=== PATIENT | female | born 1960 | race Caucasian/White ===

== ENCOUNTER 2021-12-31 08:13 | Emergency (ER) | payer OTHER, SELFPAY ==
--- NOTE | ~2021-12-31 | XR_ITS ---
EXAMINATION: CT BRAIN AND CHEST X-RAY. CLINICAL INFORMATION: Change in mental status. Rule out stroke, bleed or mass effect. COMPARISON: None TECHNIQUE: 5 minutes thin axial and 2 mm reformatted coronal and sagittal images of brain were obtained. DLP 661. Chest one view. FINDINGS: BRAIN: There is moderate hypodensity in the left posterior parietal lobe and watershed area consistent with edema. Infarction is not excluded. However the hypodensity extends through the port posterior callus formation to the contralateral side suggestive of edema likely secondary to underlying mass. There is mild rffu-hc-zmmoy midline shift measuring 6 mm. There is moderate compression of the lateral ventricle. The right lateral ventricle and the right cerebral hemisphere is normal. There is loss of left cerebral cortical sulci secondary to edema. Bone windows reveal no calvarial abnormality. There is no scalp soft tissue abnormality. CHEST: The lungs are expanded and clear. The heart size and pulmonary vascularity is normal. No gross bony abnormality seen. XR/XR chest 1V IMPRESSION: Moderate hypodensity left posterior parietal lobe with effacement of left cerebellar cortical sulci mild [id number] midline shift. The hypodensity extends into the right corpus callosum via the left suggestive of vasogenic edema. This could be most likely secondary to underlying lesion such as glioma. Recommend correlation with MRI brain without contrast. Unremarkable chest exam. Results were discussed by phone with Dr. Jagdish Walton 9:50 AM
--- NOTE | ~2021-12-31 | CT_ITS ---
EXAMINATION: CT BRAIN AND CHEST X-RAY. CLINICAL INFORMATION: Change in mental status. Rule out stroke, bleed or mass effect. COMPARISON: None TECHNIQUE: 5 minutes thin axial and 2 mm reformatted coronal and sagittal images of brain were obtained. DLP 661. Chest one view. FINDINGS: BRAIN: There is moderate hypodensity in the left posterior parietal lobe and watershed area consistent with edema. Infarction is not excluded. However the hypodensity extends through the port posterior callus formation to the contralateral side suggestive of edema likely secondary to underlying mass. There is mild aoqq-qp-[id number] midline shift measuring 6 mm. There is moderate compression of the lateral ventricle. The right lateral ventricle and the right cerebral hemisphere is normal. There is loss of left cerebral cortical sulci secondary to edema. Bone windows reveal no calvarial abnormality. There is no scalp soft tissue abnormality. CHEST: The lungs are expanded and clear. The heart size and pulmonary vascularity is normal. No gross bony abnormality seen. CT/CT head/brain wo con IMPRESSION: Moderate hypodensity left posterior parietal lobe with effacement of left cerebellar cortical sulci mild zebn-[id number]-mzbld midline shift. The hypodensity extends into the right corpus callosum via the left suggestive of vasogenic edema. This could be most likely secondary to underlying lesion such as glioma. Recommend correlation with MRI brain without contrast. Unremarkable chest exam. Results were discussed by phone with Dr. Jagdish Walton 9:50 AM
[2021-12-31 08:20] VITALS: BP 137/89; BP 144/85; PULSE 112; PULSE 114; RESP 28; TEMP 38.6; O2SAT 94; O2SAT 95; BMI 30.7
--- NOTE | 2021-12-31 08:52 | ED_ITS ---
HPI - Altered Mental Status General Chief Complaint: Altered Mental Status Stated Complaint: STROKE ALERT,LKWT OVER 12 HOURS,R WEAKNESS Time Seen by Provider: 12/31/21 08:29 Source: EMS Mode of arrival: EMS Limitations: altered mental status History of Present Illness HPI narrative: 61-year-old female who was sent to the emergency department for altered mental status. The patient is oriented to person only and cannot answer questions appropriately. I attempted to contact the patient's home phone number to talk to her and the contact number for her some but was unable to reach any family members. The information comes from nursing note which was obtained from the paramedics. patient presents the ED with EMS for altered mental status. EMS states that her reports 1 week of progressive weakness and altered state. She does not contribute to the history of her symptoms. The ED nurse t old me that the reported that the patient started sulindac 1 week prior this is the only medication change. On presentation, the patient is oriented to person only, she does have make a verbal speech that was not comprehensible. she does follow some simple commands but not all. Initial vital signs revealed a blood pressure of 144/85, elevated pulse of 114, elevated respiratory rate of 28 and a temperature of a 101.4?. She meets SIRS criteria. 10 12: I did contact the patient's and got a more detailed history from him. He states the patient has been complaining of right arm pain since her 1st COVID 19 vaccination on 03/2021, she did receive a booster vaccination on 01/2021 ( Moderna). Over the past week the patient has been having difficulty with her memory and has been forgetting things. The 's had to tell her about multiple scheduled events that she keeps forgetting. Over the last week the patient has developed weakness of her right arm and has been dragging her right leg. The states that the patient has become foggy . This got progressively worse and today, she was confused, not answering questions and having difficulty walking therefore called an ambulance and had her brought to emergency department for evaluation. Related Data Home Medications Medication Instructions Recorded Confirmed duloxetine 60 mg capsule,delayed 1 cap PO BEDTIME 12/31/21 12/31/21 release esomeprazole magnesium 20 mg 20 mg PO DAILY 12/31/21 12/31/21 capsule,delayed release fenofibrate nanocrystallized 145 1 tab PO DAILY 12/31/21 12/31/21 mg tablet haloperidol 1 mg tablet 1 tab PO BID 12/31/21 12/31/21 lamotrigine 150 mg tablet 150 tab PO BEDTIME 12/31/21 12/31/21 lamotrigine 25 mg tablet 50 mg PO DAILY 12/31/21 12/31/21 lorazepam 0.5 mg tablet 1 tab PO BID PRN 12/31/21 12/31/21 mirtazapine 45 mg tablet 1 tab PO BEDTIME 12/31/21 12/31/21 rosuvastatin 10 mg tablet 1 tab PO BEDTIME 12/31/21 12/31/21 sulindac 200 mg tablet 1 tab PO BID 12/31/21 12/31/21 Allergies Allergy/AdvReac Type Severity Reaction Status Date / Time sumatriptan [From Allergy Severe TONGUE AND Unverified 08/17/20 17:20 [email or web address]] THROAT SWELLING Review of Systems Verdana 4l Review of Systems: Yes Unobtainable due to mental status Verdana 4d [facility] Past Medical History [facility] Narrative: Past medical history: is a poor informant regarding the patient's past medical history however based on her medications patient has diabetes, hyperlipidemia, GERD, depression and anxiety. She does take haloperidol but the does not know the reason for this medication Past surgical history: According to the , patient has had several knee surgeries. Social history: The patient does not smoke cigarettes. She does drink alcohol but has had no alcohol to drink and 1/2 weeks. she does not use drugs. Social History Social History Advance Directives: No Advance Directives Information Provided: Yes Physical Exam Verdana 4l Vital Signs: Verdana 4d Verdana 4d Vital Signs: Verdana 4d Verdana 4Bd Last Vital Signs Verdana 4d Architecture Professor New 4d Architecture Professor New 4d Temp 99.7 F 12/31/21 11:08 Architecture Professor New 4d Pulse 93 12/31/21 11:08 Architecture Professor New 4d Resp 12 12/31/21 11:08 BP 109/68 12/31/21 11:08 Pulse Ox 97 12/31/21 11:08 BMI result Body Mass Index 30.7 Const: Other: awake female, she is altered, she was able to state her 1st name but not her last, she is mumbling incomprehensible speech, she does follow some simple commands but not all commands. HENMT: Head: Yes normal to inspection, Yes normocephalic and Yes atraumatic Ears: external ears normal General nose exam: Normal external nose present Face and sinus: Yes normal facial exam Mouth: mucous membranes dry ( Very dry) Throat: Yes posterior oropharynx normal Eyes: General: appearance normal, both eyes and all related structures Neck: Neck: Yes normal visual inspection, Yes no lymphadenopathy, Yes trachea midline and Yes other ( the patient's neck does seem to be stiff to flexion but not lateral moveme) Chest: Chest palpation & inspection: normal inspection of the chest and normal palpation of entire chest wall Resp: Effort & Inspection: normal respiratory effort and able to speak in complete sentences Auscultation: clear to auscultation bilaterally Cardio: Rate: tachycardic Rhythm: regular rhythm Heart sounds: S1 normal heart sound present, S2 normal heart sound present and no murmurs GI: Inspection: Yes normal to inspection Palpation (GI): Soft to palpation, nontender and no guarding Auscultation: normal bowel sounds : General: Yes no CVA tenderness Back/Spine/Pelvis: Back: no CVA tenderness Skin: Other: no petechiae noted General skin exam: no rashes or lesions noted Neuro: Other: exam is limited by patient's altered mental status, she was able to close her eyes and open her mouth but not stick out her tongue on command, she does seem to be able to hold her arms up against gravity and move her legs, he may have some slight weakness of the right upper extremity compared to the left but this is difficult to ascertain since she cannot cooperate with the exam. Extrem: General: Yes normal to inspection Psych: Other: Altered mental status, mumbling non comprehensible verbal speech, oriented to name only, does follow some simple commands Course Course Course Narrative: 61-year-old female who presents emergency department for evaluation of altered mental status with reported progressive weakness and change in mental status over 1 week. Patient was oriented to name only, she is mumbling verbal non comprehensible speech, she does follow some simple commands. Patient may have some nuchal rigidity with no evidence of a rash. Patient's initial vital signs were concerning with a temperature of a 101.4?, respiratory rate 28 and pulse o 114. Differential includes but is not limited to toxic metabolic syndrome, meningitis, pneumonia, urinary tract infection, COVID-19 infection. she is not hypotensive her blood pressure is 144/85. I did order workup on this patient to include CBC, CMP, blood cultures x2, straight cath urine specimen, lactate, TSH, PT/ INR, PTT, alcohol, urine drug screen, chest x-ray x1 view and CT scan of the brain without contrast. Patient was ordered to get normal saline 30 cc/kilogram, ceftriaxone 2 g IV and vancomycin 1 g IV. If the patient has a normal CT scan with no evidence for cerebral edema, I will do a spinal tap. 1018 : The patient's CT scan of the brain :Moderate hypodensity left posterior parietal lobe with effacement ofleft cerebellar cortical sulci mild [id number]-[id number] midline shift. The hypodensity extends into the right corpus callosum via the left suggestive of vasogenic edema. This could be most likely secondary to underlying lesion such as glioma. Recommend correlation with MRI brain without contrast. given this finding, LP will not be done. the patient will be given dexamethasone 10 mg IV. She will still be treated with antibiotics. I did discuss this finding with the patient's and we will transfer the patient to a facility that has neurosurgical services. The patient's laboratory evaluation was unremarkable except for a slightly low potassium 3.2. The patient's lactate was normal. Coags were normal. Urinalysis was negative. COVID-19 was negative. ETOH was below detectable limits. 1025: I did discuss the patient's presentation with [facility] and they are unable to accept this patient secondary to critical overload. I will discuss the patient's presentation with [facility]. 1126: The patient was accepted as an ED to ED transfer to [facility], the excepting ED physician is Dr. Patrick. the patient will be transported by ALS ambulance. ? MDM - Altered Mental Status Lab Data Result diagrams: 12/31/21 08:58 12/31/21 08:58 Labs: Lab Results 12/31/21 12/31/21 12/31/21 Range/Units 08:57 08:58 08:58 WBC 8.2 (4.8-10.8) X10*3/uL RBC 4.43 (4.20-5.50) X10*6/uL Hgb 14.3 (12.0-16.0) g/dl Hct 42.4 (37.0-47.0) % MCV 95.7 (80.0-98.0) fL MCH 32.3 (27.0-33.0) pg MCHC 33.7 (31.0-35.0) g/dl RDW 11.5 (11.0-16.0) % Plt Count 241 (160-400) X10*3/uL MPV 10.0 (9.4-12.3) fL Immature Gran % (Auto) 0.4 (0.0-0.4) % Neut % (Auto) 78.2 H (45-73) % Lymph % (Auto) 12.0 L (20-40) % Lamb % (Auto) 8.6 (2-11) % Eos % (Auto) 0.6 (0-4) % Baso % (Auto) 0.2 (0-2) % Lymph # (Auto) 1.0 L (1.2-4.9) X10*3/uL Lamb # (Auto) 0.7 (0.1-1.2) X10*3/uL Eos # (Auto) 0.1 (0.0-0.4) X10*3/uL Baso # (Auto) 0.0 (0.0-0.2) X10*3/uL Abs Immat Gran (auto) 0.03 (0.00-0.03) X10*3/uL Absolute Neuts (auto) 6.4 (2.0-8.3) x10*3/uL Absolute Nucleated RBC 0.000 (0.0-0.012) X10*3/uL Nucleated RBC % (auto) 0.0 (0.0-0.2) /100WBC PT 12.9 (9.9-13.0) SEC INR 1.1 (0.9-1.1) APTT 29.2 (24.1-38.0) SEC Sodium (135-145) mmol/L Potassium (3.3-5.1) mmol/L Chloride (96-108) mmol/L Carbon Dioxide (22-29) mmol/L Anion Gap (12-20) BUN (9-16) mg/dL Creatinine (0.5-1.4) mg/dL Estim Creat Clear Calc Estimated GFR Random Glucose (60-115) mg/dL Lactic Acid (0.5-2.0) mmol/L Calcium (8.4-10.2) mg/dL Total Bilirubin (0.0-1.0) mg/dL AST (5-31) U/L ALT (0-31) U/L Alkaline Phosphatase (39-117) U/L Total Protein (6.5-8.0) g/dL Albumin (3.5-5.0) g/dL Lipase (8-78) U/L TSH (0.32-4.0) uIU/mL Urine Color Urine Appearance Urine pH (5.0-8.0) Ur Specific Ranger (1.005-1.025) Urine Protein (NEG-TRACE) MG/DL Urine Glucose (UA) (NEG) MG/DL Urine Ketones (NEG) MG/DL Urine Blood (NEG) Urine Nitrite (NEG) Ur Leukocyte Esterase (NEG) Urine RBC (0) /HPF Urine WBC (0-4) /HPF Ur Squamous Epith Cells /LPF Ur Renal Epithelial Cell /LPF Calcium Oxalate Crystal /LPF Urine Bacteria /LPF Hyaline Casts /LPF Ethyl Alcohol mg/dL COVID-19 (TONY) Negative (Negative) COVID-19 Clin Com See Note 12/31/21 12/31/21 12/31/21 Range/Units 08:58 08:58 08:58 WBC (4.8-10.8) X10*3/uL RBC (4.20-5.50) X10*6/uL Hgb (12.0-16.0) g/dl Hct (37.0-47.0) % MCV (80.0-98.0) fL MCH (27.0-33.0) pg MCHC (31.0-35.0) g/dl RDW (11.0-16.0) % Plt Count (160-400) X10*3/uL MPV (9.4-12.3) fL Immature Gran % (Auto) (0.0-0.4) % Neut % (Auto) (45-73) % Lymph % (Auto) (20-40) % Lamb % (Auto) (2-11) % Eos % (Auto) (0-4) % Baso % (Auto) (0-2) % Lymph # (Auto) (1.2-4.9) X10*3/uL Lamb # (Auto) (0.1-1.2) X10*3/uL Eos # (Auto) (0.0-0.4) X10*3/uL Baso # (Auto) (0.0-0.2) X10*3/uL Abs Immat Gran (auto) (0.00-0.03) X10*3/uL Absolute Neuts (auto) (2.0-8.3) x10*3/uL Absolute Nucleated RBC (0.0-0.012) X10*3/uL Nucleated RBC % (auto) (0.0-0.2) /100WBC PT (9.9-13.0) SEC INR (0.9-1.1) APTT (24.1-38.0) SEC Sodium 142 (135-145) mmol/L Potassium 3.2 L (3.3-5.1) mmol/L Chloride 104 (96-108) mmol/L Carbon Dioxide 26 (22-29) mmol/L Anion Gap 15 (12-20) BUN 15 (9-16) mg/dL Creatinine 0.88 (0.5-1.4) mg/dL Estim Creat Clear Calc 75.1 Estimated GFR > 60 Random Glucose 93 (60-115) mg/dL Lactic Acid 1.2 (0.5-2.0) mmol/L Calcium 9.3 (8.4-10.2) mg/dL Total Bilirubin 0.5 (0.0-1.0) mg/dL AST 61 H (5-31) U/L ALT 31 (0-31) U/L Alkaline Phosphatase 58 (39-117) U/L Total Protein 6.9 (6.5-8.0) g/dL Albumin 4.2 (3.5-5.0) g/dL Lipase 27 (8-78) U/L TSH 1.01 (0.32-4.0) uIU/mL Urine Color Urine Appearance Urine pH (5.0-8.0) Ur Specific Ranger (1.005-1.025) Urine Protein (NEG-TRACE) MG/DL Urine Glucose (UA) (NEG) MG/DL Urine Ketones (NEG) MG/DL Urine Blood (NEG) Urine Nitrite (NEG) Ur Leukocyte Esterase (NEG) Urine RBC (0) /HPF Urine WBC (0-4) /HPF Ur Squamous Epith Cells /LPF Ur Renal Epithelial Cell /LPF Calcium Oxalate Crystal /LPF Urine Bacteria /LPF Hyaline Casts /LPF Ethyl Alcohol < 10 mg/dL COVID-19 (TONY) (Negative) COVID-19 Clin Com 12/31/21 Range/Units 09:58 WBC (4.8-10.8) X10*3/uL RBC (4.20-5.50) X10*6/uL Hgb (12.0-16.0) g/dl Hct (37.0-47.0) % MCV (80.0-98.0) fL MCH (27.0-33.0) pg MCHC (31.0-35.0) g/dl RDW (11.0-16.0) % Plt Count (160-400) X10*3/uL MPV (9.4-12.3) fL Immature Gran % (Auto) (0.0-0.4) % Neut % (Auto) (45-73) % Lymph % (Auto) (20-40) % Lamb % (Auto) (2-11) % Eos % (Auto) (0-4) % Baso % (Auto) (0-2) % Lymph # (Auto) (1.2-4.9) X10*3/uL Lamb # (Auto) (0.1-1.2) X10*3/uL Eos # (Auto) (0.0-0.4) X10*3/uL Baso # (Auto) (0.0-0.2) X10*3/uL Abs Immat Gran (auto) (0.00-0.03) X10*3/uL Absolute Neuts (auto) (2.0-8.3) x10*3/uL Absolute Nucleated RBC (0.0-0.012) X10*3/uL Nucleated RBC % (auto) (0.0-0.2) /100WBC PT (9.9-13.0) SEC INR (0.9-1.1) APTT (24.1-38.0) SEC Sodium (135-145) mmol/L Potassium (3.3-5.1) mmol/L Chloride (96-108) mmol/L Carbon Dioxide (22-29) mmol/L Anion Gap (12-20) BUN (9-16) mg/dL Creatinine (0.5-1.4) mg/dL Estim Creat Clear Calc Estimated GFR Random Glucose (60-115) mg/dL Lactic Acid (0.5-2.0) mmol/L Calcium (8.4-10.2) mg/dL Total Bilirubin (0.0-1.0) mg/dL AST (5-31) U/L ALT (0-31) U/L Alkaline Phosphatase (39-117) U/L Total Protein (6.5-8.0) g/dL Albumin (3.5-5.0) g/dL Lipase (8-78) U/L TSH (0.32-4.0) uIU/mL Urine Color YELLOW Urine Appearance CLOUDY Urine pH 6.0 (5.0-8.0) Ur Specific Ranger >= 1.030 H (1.005-1.025) Urine Protein 2+ H (NEG-TRACE) MG/DL Urine Glucose (UA) NEG (NEG) MG/DL Urine Ketones 5 (NEG) MG/DL Urine Blood NEG (NEG) Urine Nitrite NEG (NEG) Ur Leukocyte Esterase NEG (NEG) Urine RBC 0 (0) /HPF Urine WBC 0 (0-4) /HPF Ur Squamous Epith Cells NONE /LPF Ur Renal Epithelial Cell 4+ /LPF Calcium Oxalate Crystal 3+ /LPF Urine Bacteria NONE /LPF Hyaline Casts 0-2 /LPF Ethyl Alcohol mg/dL COVID-19 (TONY) (Negative) COVID-19 Clin Com Critical Care Time Critical Care Time Critical Care Time: Yes Total Critical Care Time: 55 Attestation: Critical Care: The patient was critically ill with a high probability of imminent or life threatening deterioration. I spent greater than 30 minutes of discontinuous time evaluating the patient,delivering critical care at the bedside, discussing and evaluating pertinent data with consultants. Critical care time does not include time spent performing separately billable procedures or teaching. Total time spent performing critical care was 55 minutes. Discharge Plan Discharge Clinical Impression: Altered mental status, Cerebral edema, Fever Patient Disposition: Xfer Acute Care Hospital Transfer Details: ED to ED transfer to [facility] Prescriptions: No Action lamotrigine 150 mg tablet 150 tab PO BEDTIME 0RF haloperidol 1 mg tablet 1 tab PO BID 0RF lamotrigine 25 mg tablet 50 mg PO DAILY 0RF lorazepam 0.5 mg tablet 1 tab PO BID PRN (Reason: Anxiety) 0RF mirtazapine 45 mg tablet 1 tab PO BEDTIME 0RF sulindac 200 mg tablet 1 tab PO BID 0RF esomeprazole magnesium 20 mg Capsule,Delayed Release(Dr/Ec) 20 mg PO DAILY 0RF rosuvastatin 10 mg tablet 1 tab PO BEDTIME 0RF duloxetine 60 mg capsule,delayed release(DR/EC) 1 cap PO BEDTIME 0RF fenofibrate nanocrystallized 145 mg tablet 1 tab PO DAILY 0RF
[2021-12-31 09:09] LABS: MANUAL DIFF FLAG NO
[2021-12-31 09:11] LABS: Basophils Percent Auto 0.2 % (0-2); Eosinophils Absolute Auto 0.1 X10*3/uL (0.0-0.4); Eosinophils Percent Auto 0.6 % (0-4); Hematocrit 42.4 % (37.0-47.0); Hemoglobin 14.3 g/dl (12.0-16.0); Imm Gran Abs Auto 0.03 X10*3/uL (0.00-0.03); Imm Gran Pct Auto 0.4 % (0.0-0.4); Mean Corpuscular HGB Conc 33.7 g/dl (31.0-35.0); Mean Corpuscular Hemoglobin 32.3 pg (27.0-33.0); Mean Corpuscular Volume 95.7 fL (80.0-98.0); Monocytes Absolute Auto 0.7 X10*3/uL (0.1-1.2); Monocytes Percent Auto 8.6 % (2-11); Neutrophils Absolute Auto 6.4 x10*3/uL (2.0-8.3); Neutrophils Percent Auto 78.2 % (45-73); Platelet Count 241 X10*3/uL (160-400); Red Blood Count 4.43 X10*6/uL (4.20-5.50); Red Cell Distribution Width 11.5 % (11.0-16.0); White Blood Count 8.2 X10*3/uL (4.8-10.8)
[2021-12-31] MEDS: 0.9 % Sodium Chloride 2,585.49 ML 2585.49 ML IV (09:11)
[2021-12-31 09:19] LABS: INTERNATIONAL NORM RATIO 1.1 (0.9-1.1); Prothrombin Time 12.9 SEC (9.9-13.0)
[2021-12-31 09:20] LABS: Lactic Acid 1.2 mmol/L (0.5-2.0)
[2021-12-31 09:21] LABS: Partial Thromboplastin Time 29.2 SEC (24.1-38.0)
[2021-12-31 09:23] LABS: Ethanol < 10 mg/dL
[2021-12-31] MEDS: cefTRIAXone sodium 2 GM in 0.9 % Sodium Chloride 50 ML IV (09:25)
[2021-12-31 09:26] LABS: Alanine Aminotransferase 31 U/L (0-31); Albumin Level 4.2 g/dL (3.5-5.0); Alkaline Phosphatase 58 U/L (39-117); Anion Gap 15 (12-20); Aspartate Amino Transferase 61 U/L (5-31); Bilirubin Total 0.5 mg/dL (0.0-1.0); Blood Urea Nitrogen 15 mg/dL (9-16); Calcium 9.3 mg/dL (8.4-10.2); Carbon Dioxide 26 mmol/L (22-29); Chloride 104 mmol/L (96-108); Creatinine Clr Calc Pharmacy 75.1; Estimated Glomerular Filt Rate > 60; Glucose Random 93 mg/dL (60-115); Lipase 27 U/L (8-78); Potassium 3.2 mmol/L (3.3-5.1); Sodium 142 mmol/L (135-145); Total Protein 6.9 g/dL (6.5-8.0)
[2021-12-31] MEDS: Acetaminophen Supp 650 MG SUPP.RECT PR (09:29)
[2021-12-31] MEDS: 0.9 % Sodium Chloride 1,000 ML 125 ML IVCONT (09:29)
[2021-12-31 09:46] LABS: TSH reflex Free T4 1.01 uIU/mL (0.32-4.0)
[2021-12-31 09:55] LABS: COVID-19 Test Negative (Negative); IDNOW Serial# 9DD0AD1C
[2021-12-31 10:06] LABS: Appearance Urine CLOUDY; Color Urine YELLOW; Glucose Urine UA NEG (NEG); Leukocyte Esterase Urine NEG (NEG); Nitrite Urine NEG (NEG); Specific Gravity - Urine >= 1.030 (1.005-1.025); UACC Culture Trigger NO; Urine Blood NEG (NEG); Urine Ketones 5 MG/DL (NEG); Urine Protein 2+ MG/DL (NEG-TRACE)
--- NOTE | 2021-12-31 10:10 | PC.NURSE ---
CALL PLACED TO [facility] PT TX LINE AT THIS TIME LORI ANSWERS AND ASKS TO SPEAK WITH DR PARDEEP ROBERTO TAKES OVER CALL RIGHT AWAY
[2021-12-31 10:13] LABS: Calcium Oxalate Crystals Urine 3+ /LPF; Hyaline Casts Urine 0-2 /LPF; RBC Urine 0 /HPF (0); Renal Epithelial Cells Urine 4+ /LPF; WBC Urine 0 /HPF (0-4)
--- NOTE | 2021-12-31 10:13 | PC.NURSE ---
@10:13 DR ROBERTO REQUESTS CALL OUT TO [facility] HERIBERTO ANSWERS, TAKES PT INFO AND ASKS TO SPEAK WITH DR PARDEEP ROBERTO TAKES OVER CALL RIGHT AWAY
[2021-12-31 10:22] VITALS: BP 116/77; PULSE 98; RESP 15; TEMP 37.9; O2SAT 100
--- NOTE | 2021-12-31 10:23 | PC.NURSE ---
@ 10:23 HERIBERTO FROM [facility] CALLS BACK TO SPEAK WITH DR PARDEEP ROBERTO TAKES OVER CALL RIGHT AWAY @10:24 DR ROBERTO ASKS FOR CALL OUT TO [facility]
[2021-12-31] MEDS: dexAMETHasone sod phosphate 10 MG/ML VIAL IVPUSH (10:24)
--- NOTE | 2021-12-31 10:27 | PC.NURSE ---
@ 10:26 CALL PLACED TO [facility] [place] LINE LES ANSWERS,TAKES PT INFO AND ASKS TO SPEAK WITH DR PARDEEP ROBERTO TAKES OVER CALL RIGHT AWAY
[2021-12-31] MEDS: vancomycin HCL 1,500 MG in 0.9 % Sodium Chloride 500 ML 333.33 MG IV (10:34)
[2021-12-31 11:08] VITALS: BP 109/68; PULSE 93; RESP 12; TEMP 37.6; O2SAT 97
--- NOTE | 2021-12-31 11:10 | PC.NURSE ---
pt's is at bedside, he is aware of plan of care.
--- NOTE | 2021-12-31 11:22 | PC.NURSE ---
@11:22 RETURN CALL FROM [facility] OF [facility] [place] LINE ASKING TO SPEAK WITH DR PARDEEP ROBERTO TAKES OVER CALL RIGHT AWAY
--- NOTE | 2021-12-31 11:31 | PHA.MEDREC ---
Pharmacy Consult ? Medication Reconciliation Pharmacy has completed the medication reconciliation. Patient is AMS. Phone for spouse does not work. Patient had a list of medicaitons without doses. Used claim history to determine which medications patient is on. Duloextine, Haloperidol and lamotrgine had multiple prescriptions. I contacted Shanika Griffin's office to confirm the dose of medications she should be on. - Duloxetine 60 mg QAm and 40mg QHS - Haloperidol 1 mg + 0.5 mg BID - Lamotrigine 50 mg QAM and 150 mg QHS (lamotrigine 200 mg was DC'd on 09/28/21) Marleny Danielson, PharmD
[2021-12-31 12:01] LABS: Amphetamine Screen Urine Not Detected (Not Detect); Barbiturates, Urine Not Detected (Not Detect); Benzodiazepines Screen Urine Not Detected (Not Detect); Cannabinoid Screen Urine Not Detected (Not Detect); Cocaine Screen Urine Not Detected (Not Detect); Fentanyl, urine POSITIVE (Not Detect); Opiate Screen Urine Not Detected (Not Detect); Phencyclidine Screen Urine Not Detected (Not Detect)
--- NOTE | 2021-12-31 12:11 | PC.NURSE ---
RN TO RN REPORT GIVEN TO STEFANIA. PT'S AWARE OF PLAN OF CARE FOR PT TRANSFER VIA AMBULANCE.
[2021-12-31 12:19] VITALS: BP 122/72; PULSE 92; RESP 15; TEMP 37.2; O2SAT 99
--- NOTE | 2021-12-31 17:07 | PC.NURSE ---
second attempt to call report.
== END 2021-12-31 12:16 | disposition short-term general hospital (02) ==
PROVIDERS: Emergency Provider Emergency Medicine Emergency Medical Services; PCP Internal Medicine
DX: G93.6 Cerebral edema (principal); R41.82 Altered mental status, unspecified; R50.9 Fever, unspecified; R53.1 Weakness; Z20.822 Contact with and (suspected) exposure to COVID-19; E11.9 Type 2 diabetes mellitus without complications; E78.5 Hyperlipidemia, unspecified; K21.9 Gastro-esophageal reflux disease without esophagitis; Z79.899 Other long term (current) drug therapy
CPT/HCPCS: 36415; 51702; 70450; 71045; 80053; 80307; 81001; 82077; 83605; 83690; 84443; 85025; 85610; 85730; 87040; 87147; 87205; 87635; 96361; 96365; 96367; 99285; 99291; J0696; J1100; J3370